=== PATIENT | female | born 1995 | race Caucasian/White ===

== ENCOUNTER 2016-07-25 14:39 | Outpatient (CLI) | payer OTHER ==
[2016-07-25 16:03] LABS: APPEARANCE,URINE CLOUDY; BILIRUBIN,URINE NEGATIVE (NEGATIVE); GLUCOSE, URINE 50 mg/dL (NEGATIVE); KETONES,URINE NEGATIVE (NEGATIVE); LEUKOCYTE ESTERASE,URINE LARGE (NEGATIVE); NITRITE,URINE NEGATIVE (NEGATIVE); PROTEIN,URINE 30 mg/dL (NEGATIVE); URINE SPECIFIC GRAVITY 1.018; UROBILINOGEN,URINE NEGATIVE mg/dL (<2.0)
[2016-07-25 16:16] LABS: ABSOLUTE EOSINOPHILS # (AUTO) 0.1 10^3/uL (0.0-0.6); ABSOLUTE LYMPHOCYTES (AUTO) 1.6 10^3/uL (0.5-4.7); ABSOLUTE MONOCYTES (AUTO) 0.8 10^3/uL (0.1-1.4); ABSOLUTE NEUT (AUTO) 6.9 10^3/uL (1.7-8.2); BASOPHILS % (AUTO) 0.2 % (0-2); EOSINOPHILS % (AUTO) 0.7 % (0-6); HEMOGLOBIN 10.8 g/dL (12.0-15.5); HGB HCT DIFFERENCE 0.4; LYMPHOCYTES % (AUTO) 16.6 % (13-45); MEAN CORPUSCULAR HGB CONC 33.6 g/dL (32.0-36.0); MEAN CORPUSCULAR VOLUME 83 fl (80-97); MONOCYTES % (AUTO) 8.2 % (3-13); RED BLOOD COUNT 3.85 10^6/uL (3.72-5.28); RED CELL DISTRIBUTION WIDTH 13.7 % (11.5-14.0); SEGMENTED NEUTROPHILS % (AUTO) 74.3 % (42-78); WHITE BLOOD COUNT 9.4 10^3/uL (4.0-10.5)
[2016-07-25 16:27] LABS: URINE BARBITURATES SCREEN NEGATIVE; URINE METHADONE SCREEN NEGATIVE; URINE OPIATES LOW NEGATIVE; URINE PHENCYCLIDINE SCREEN NEGATIVE
[2016-07-25 16:31] LABS: URINE PROTEIN 12.4 mg/dL (<12)
[2016-07-25 16:34] LABS: ALANINE AMINOTRANSFERASE 33 U/L (9-52); ALBUMIN 3.2 g/dL (3.5-5.0); ALKALINE PHOSPHATASE 58 U/L (38-126); ANION GAP 10 (5-19); ASPARTATE AMINO TRANSFERASE 18 U/L (14-36); BILIRUBIN,DIRECT 0.2 mg/dL (0.0-0.4); BILIRUBIN,TOTAL 0.2 mg/dL (0.2-1.3); BLOOD UREA NITROGEN 10 mg/dL (7-20); CALCIUM 9.3 mg/dL (8.4-10.2); CARBON DIOXIDE 23 mmol/L (22-30); CHLORIDE 106 mmol/L (98-107); CREATININE RESULT 0.59 mg/dL (0.52-1.25); GLUCOSE 104 mg/dL (75-110); LDH 394 U/L (313-618); POTASSIUM 3.5 mmol/L (3.6-5.0); SODIUM 139.3 mmol/L (137-145); TOTAL PROTEIN 5.8 g/dL (6.3-8.2); URIC ACID 3.5 mg/dL (2.5-6.2)
== END 2016-07-25 17:05 | disposition home or self-care (01) ==
LOC: LC 14:39
PROVIDERS: ATTEND Obstetrics & Gynecology
PROC: 4A1HXCZ Monitoring of Products of Conception, Cardiac Rate, External Approach (ICD-10-PCS; principal; 2016-07-25)
DX: Z36 Encounter for antenatal screening of mother (principal); Z3A.25 25 weeks gestation of pregnancy
CPT/HCPCS: 36415; 80053; 80307; 81001; 82570; 83615; 84156; 84550; 85025

== ENCOUNTER 2016-09-15 13:59 | Outpatient (CLI) | payer OTHER ==
[2016-09-15 14:44] LABS: ABSOLUTE EOSINOPHILS # (AUTO) 0.1 10^3/uL (0.0-0.6); ABSOLUTE LYMPHOCYTES (AUTO) 1.5 10^3/uL (0.5-4.7); ABSOLUTE MONOCYTES (AUTO) 0.8 10^3/uL (0.1-1.4); ABSOLUTE NEUT (AUTO) 8.1 10^3/uL (1.7-8.2); BASOPHILS % (AUTO) 0.3 % (0-2); EOSINOPHILS % (AUTO) 0.6 % (0-6); HEMATOCRIT 34.4 % (36.0-47.0); HEMOGLOBIN 11.6 g/dL (12.0-15.5); HGB HCT DIFFERENCE 0.4; MEAN CORPUSCULAR HEMOGLOBIN 28.7 pg (27.0-33.4); MEAN CORPUSCULAR HGB CONC 33.9 g/dL (32.0-36.0); MEAN CORPUSCULAR VOLUME 85 fl (80-97); MONOCYTES % (AUTO) 7.6 % (3-13); RED BLOOD COUNT 4.06 10^6/uL (3.72-5.28); RED CELL DISTRIBUTION WIDTH 14.9 % (11.5-14.0); SEGMENTED NEUTROPHILS % (AUTO) 77.5 % (42-78); WHITE BLOOD COUNT 10.5 10^3/uL (4.0-10.5)
[2016-09-15 14:58] LABS: ALANINE AMINOTRANSFERASE 31 U/L (9-52); ALBUMIN 3.3 g/dL (3.5-5.0); ALKALINE PHOSPHATASE 96 U/L (38-126); ANION GAP 10 (5-19); ASPARTATE AMINO TRANSFERASE 17 U/L (14-36); BILIRUBIN,DIRECT 0.3 mg/dL (0.0-0.4); BILIRUBIN,TOTAL 0.5 mg/dL (0.2-1.3); BLOOD UREA NITROGEN 9 mg/dL (7-20); CARBON DIOXIDE 18 mmol/L (22-30); CHLORIDE 108 mmol/L (98-107); CREATININE RESULT 0.64 mg/dL (0.52-1.25); GLUCOSE 70 mg/dL (75-110); LDH 444 U/L (313-618); SODIUM 135.6 mmol/L (137-145); TOTAL PROTEIN 6.3 g/dL (6.3-8.2); URIC ACID 4.5 mg/dL (2.5-6.2)
[2016-09-15 15:42] LABS: APPEARANCE,URINE SLIGHTLY-CLOUDY; BILIRUBIN,URINE NEGATIVE (NEGATIVE); GLUCOSE, URINE NEGATIVE (NEGATIVE); KETONES,URINE 20 mg/dL (NEGATIVE); LEUKOCYTE ESTERASE,URINE MODERATE (NEGATIVE); NITRITE,URINE NEGATIVE (NEGATIVE); PROTEIN,URINE 30 mg/dL (NEGATIVE); URINE SPECIFIC GRAVITY 1.012; UROBILINOGEN,URINE NEGATIVE mg/dL (<2.0)
[2016-09-15 16:00] LABS: URINE BARBITURATES SCREEN NEGATIVE; URINE METHADONE SCREEN NEGATIVE; URINE OPIATES LOW NEGATIVE; URINE PHENCYCLIDINE SCREEN NEGATIVE
[2016-09-15 16:06] LABS: URINE CREATININE 123.3 mg/dL (16-327); URINE PROTEIN 24.2 mg/dL (<12)
== END 2016-09-15 16:17 | disposition home or self-care (01) ==
LOC: LC 13:59
PROVIDERS: ATTEND Obstetrics & Gynecology
PROC: 4A1HXCZ Monitoring of Products of Conception, Cardiac Rate, External Approach (ICD-10-PCS; principal; 2016-09-15)
DX: O10.913 Unspecified pre-existing hypertension complicating pregnancy, third trimester (principal); Z3A.32 32 weeks gestation of pregnancy
CPT/HCPCS: 36415; 80053; 80307; 81001; 82570; 83615; 84156; 84550; 85025

== ENCOUNTER 2016-09-18 14:23 | Outpatient (CLI) | payer OTHER ==
[2016-09-18 15:21] LABS: APPEARANCE,URINE SLIGHTLY-CLOUDY; BILIRUBIN,URINE NEGATIVE (NEGATIVE); GLUCOSE, URINE NEGATIVE (NEGATIVE); KETONES,URINE NEGATIVE (NEGATIVE); LEUKOCYTE ESTERASE,URINE TRACE (NEGATIVE); NITRITE,URINE NEGATIVE (NEGATIVE); PROTEIN,URINE 30 mg/dL (NEGATIVE); URINE SPECIFIC GRAVITY 1.014; UROBILINOGEN,URINE NEGATIVE mg/dL (<2.0)
[2016-09-18 15:33] LABS: URINE CREATININE 96.6 mg/dL (16-327); URINE PROTEIN 27.9 mg/dL (<12)
[2016-09-18 15:41] LABS: URINE BARBITURATES SCREEN NEGATIVE; URINE METHADONE SCREEN NEGATIVE; URINE OPIATES LOW NEGATIVE; URINE PHENCYCLIDINE SCREEN NEGATIVE
[2016-09-18 15:52] LABS: ABSOLUTE EOSINOPHILS # (AUTO) 0.1 10^3/uL (0.0-0.6); ABSOLUTE LYMPHOCYTES (AUTO) 1.4 10^3/uL (0.5-4.7); ABSOLUTE MONOCYTES (AUTO) 0.6 10^3/uL (0.1-1.4); ABSOLUTE NEUT (AUTO) 7.8 10^3/uL (1.7-8.2); BASOPHILS % (AUTO) 0.5 % (0-2); EOSINOPHILS % (AUTO) 0.8 % (0-6); HEMOGLOBIN 11.7 g/dL (12.0-15.5); HGB HCT DIFFERENCE 0.1; LYMPHOCYTES % (AUTO) 14.4 % (13-45); MEAN CORPUSCULAR HEMOGLOBIN 28.7 pg (27.0-33.4); MEAN CORPUSCULAR HGB CONC 33.4 g/dL (32.0-36.0); MEAN CORPUSCULAR VOLUME 86 fl (80-97); MONOCYTES % (AUTO) 6.2 % (3-13); RED BLOOD COUNT 4.06 10^6/uL (3.72-5.28); RED CELL DISTRIBUTION WIDTH 15.2 % (11.5-14.0); SEGMENTED NEUTROPHILS % (AUTO) 78.1 % (42-78)
[2016-09-18 16:03] LABS: ALANINE AMINOTRANSFERASE 26 U/L (9-52); ALBUMIN 3.3 g/dL (3.5-5.0); ALKALINE PHOSPHATASE 95 U/L (38-126); ANION GAP 10 (5-19); ASPARTATE AMINO TRANSFERASE 17 U/L (14-36); BILIRUBIN,DIRECT 0.3 mg/dL (0.0-0.4); BILIRUBIN,TOTAL 0.4 mg/dL (0.2-1.3); BLOOD UREA NITROGEN 10 mg/dL (7-20); CALCIUM 9.5 mg/dL (8.4-10.2); CARBON DIOXIDE 19 mmol/L (22-30); CHLORIDE 107 mmol/L (98-107); CREATININE RESULT 0.61 mg/dL (0.52-1.25); GLUCOSE 86 mg/dL (75-110); POTASSIUM 4.1 mmol/L (3.6-5.0); SODIUM 136.2 mmol/L (137-145); TOTAL PROTEIN 6.3 g/dL (6.3-8.2); URIC ACID 4.5 mg/dL (2.5-6.2)
[2016-09-18 16:37] LABS: LDH 480 U/L (313-618)
== END 2016-09-18 17:00 | disposition home or self-care (01) ==
LOC: LC 14:23
PROVIDERS: ATTEND Obstetrics & Gynecology
PROC: 4A1HXCZ Monitoring of Products of Conception, Cardiac Rate, External Approach (ICD-10-PCS; principal; 2016-09-18)
DX: O16.3 Unspecified maternal hypertension, third trimester (principal); Z3A.32 32 weeks gestation of pregnancy
CPT/HCPCS: 36415; 59025; 80053; 80307; 81001; 82570; 83615; 84156; 84550; 85025

== ENCOUNTER 2016-09-22 13:57 | Outpatient (CLI) | payer OTHER ==
[2016-09-22 15:00] LABS: ABSOLUTE EOSINOPHILS # (AUTO) 0.1 10^3/uL (0.0-0.6); ABSOLUTE LYMPHOCYTES (AUTO) 1.5 10^3/uL (0.5-4.7); ABSOLUTE NEUT (AUTO) 7.9 10^3/uL (1.7-8.2); BASOPHILS % (AUTO) 0.4 % (0-2); EOSINOPHILS % (AUTO) 0.8 % (0-6); HEMATOCRIT 33.9 % (36.0-47.0); HEMOGLOBIN 11.5 g/dL (12.0-15.5); HGB HCT DIFFERENCE 0.6; LYMPHOCYTES % (AUTO) 14.5 % (13-45); MEAN CORPUSCULAR HEMOGLOBIN 28.8 pg (27.0-33.4); MEAN CORPUSCULAR VOLUME 85 fl (80-97); MONOCYTES % (AUTO) 9.2 % (3-13); SEGMENTED NEUTROPHILS % (AUTO) 75.1 % (42-78); WHITE BLOOD COUNT 10.5 10^3/uL (4.0-10.5)
[2016-09-22 15:30] LABS: ALANINE AMINOTRANSFERASE 18 U/L (9-52); ALBUMIN 3.4 g/dL (3.5-5.0); ALKALINE PHOSPHATASE 95 U/L (38-126); ANION GAP 9 (5-19); ASPARTATE AMINO TRANSFERASE 14 U/L (14-36); BILIRUBIN,DIRECT 0.3 mg/dL (0.0-0.4); BILIRUBIN,TOTAL 0.4 mg/dL (0.2-1.3); BLOOD UREA NITROGEN 9 mg/dL (7-20); CALCIUM 9.8 mg/dL (8.4-10.2); CARBON DIOXIDE 19 mmol/L (22-30); CHLORIDE 107 mmol/L (98-107); CREATININE RESULT 0.57 mg/dL (0.52-1.25); GLUCOSE 69 mg/dL (75-110); LDH 421 U/L (313-618); POTASSIUM 4.2 mmol/L (3.6-5.0); SODIUM 134.9 mmol/L (137-145); TOTAL PROTEIN 6.3 g/dL (6.3-8.2); URIC ACID 4.4 mg/dL (2.5-6.2)
== END 2016-09-22 16:00 | disposition home or self-care (01) ==
LOC: LC 13:57
PROVIDERS: ATTEND Obstetrics & Gynecology
PROC: 4A1HXCZ Monitoring of Products of Conception, Cardiac Rate, External Approach (ICD-10-PCS; principal; 2016-09-22)
DX: O14.93 Unspecified pre-eclampsia, third trimester (principal); Z3A.33 33 weeks gestation of pregnancy
CPT/HCPCS: 36415; 59025; 80053; 83615; 84550; 85025

== ENCOUNTER 2016-10-09 15:28 | Outpatient (CLI) | payer OTHER ==
--- NOTE | 2016-10-09 15:35 | Non Stress Test Report ---
Non Stress Test Datetime Report Generated by CPN: 10/09/2016 15:35 DEMOGRAPHIC EGA NST: 33.3 EGA NST: 32.6 INDICATION Indication for Study: Ordered by Provider; Other Indication for Study: Ordered by Provider Indication for Study (NST) Other: preeclampsia MONITORING Monitor Explained: Monitor Explained; Test Explained; Patient Verbalized Understanding Monitor Explained: Monitor Explained; Test Explained; Patient Verbalized Understanding Time on Monitor: 09/22/2016 14:11 Time on Monitor: 09/18/2016 14:41 Time off Monitor: 09/22/2016 14:40 Time off Monitor: 09/25/2016 16:32 NST Duration: 29 NST Duration: [id number] NST INTERVENTIONS NST Interventions: None NST Interventions: None Physician Notified NST: JAmparo Nj CNM BABY A: [id number] BABY A Movement : Present Movement : Present Contraction Frequency : 0 Contraction Frequency : none FHR Baseline : 135 FHR Baseline : 140 Accelerations : 15X15 Accelerations : 15X15 Decelerations : None Decelerations : None Variability : Moderate 6-25bpm Variability : Moderate 6-25bpm NST Review: Meets Criteria for Reactive NST NST Review: Meets Criteria for Reactive NST NST Review and Verified By : Renetta Couch RN NST Review and Verified By : Modesta Guadarrama RNC NST Results: Reactive NST Results: Reactive NST REPORT Report Trigger: Send Report Report Trigger: Send Report
[2016-10-09 16:06] LABS: APPEARANCE,URINE SLIGHTLY-CLOUDY; BILIRUBIN,URINE NEGATIVE (NEGATIVE); GLUCOSE, URINE NEGATIVE (NEGATIVE); KETONES,URINE NEGATIVE (NEGATIVE); LEUKOCYTE ESTERASE,URINE SMALL (NEGATIVE); NITRITE,URINE NEGATIVE (NEGATIVE); PROTEIN,URINE 100 mg/dL (NEGATIVE); URINE SPECIFIC GRAVITY 1.017; UROBILINOGEN,URINE NEGATIVE mg/dL (<2.0)
--- NOTE | 2016-10-09 16:21 | Non Stress Test Report ---
Non Stress Test Datetime Report Generated by CPN: 10/09/2016 16:21 DEMOGRAPHIC EGA NST: 35.6 INDICATION Indication for Study: Gestational Hypertension; Ordered by Provider MONITORING Monitor Explained: Monitor Explained; Test Explained; Patient Verbalized Understanding Time on Monitor: 10/09/2016 15:46 Time off Monitor: 10/09/2016 16:14 NST Duration: 28 NST INTERVENTIONS NST Interventions: PO Hydration; Reposition Patient BABY A Movement : Present Contraction Frequency : denies FHR Baseline : 135 Accelerations : 15X15 Decelerations : None Variability : Moderate 6-25bpm NST Review: Meets Criteria for Reactive NST NST Review and Verified By : Omayra Sharif RN NST Results: Reactive NST REPORT Report Trigger: Send Report
[2016-10-09 16:24] LABS: URINE BARBITURATES SCREEN NEGATIVE; URINE METHADONE SCREEN NEGATIVE; URINE OPIATES LOW NEGATIVE; URINE PHENCYCLIDINE SCREEN NEGATIVE
[2016-10-09 16:32] LABS: ABSOLUTE EOSINOPHILS # (AUTO) 0.1 10^3/uL (0.0-0.6); ABSOLUTE LYMPHOCYTES (AUTO) 1.5 10^3/uL (0.5-4.7); ABSOLUTE MONOCYTES (AUTO) 0.9 10^3/uL (0.1-1.4); BASOPHILS % (AUTO) 0.4 % (0-2); EOSINOPHILS % (AUTO) 0.7 % (0-6); HEMATOCRIT 34.2 % (36.0-47.0); HEMOGLOBIN 11.6 g/dL (12.0-15.5); HGB HCT DIFFERENCE 0.6; LYMPHOCYTES % (AUTO) 16.2 % (13-45); MEAN CORPUSCULAR HEMOGLOBIN 29.5 pg (27.0-33.4); MEAN CORPUSCULAR HGB CONC 33.9 g/dL (32.0-36.0); MEAN CORPUSCULAR VOLUME 87 fl (80-97); MONOCYTES % (AUTO) 9.3 % (3-13); RED BLOOD COUNT 3.93 10^6/uL (3.72-5.28); RED CELL DISTRIBUTION WIDTH 15.6 % (11.5-14.0); SEGMENTED NEUTROPHILS % (AUTO) 73.4 % (42-78); WHITE BLOOD COUNT 9.5 10^3/uL (4.0-10.5)
[2016-10-09 16:54] LABS: ALANINE AMINOTRANSFERASE 14 U/L (9-52); ALBUMIN 3.3 g/dL (3.5-5.0); ALKALINE PHOSPHATASE 105 U/L (38-126); ANION GAP 10 (5-19); ASPARTATE AMINO TRANSFERASE 18 U/L (14-36); BILIRUBIN,DIRECT 0.3 mg/dL (0.0-0.4); BILIRUBIN,TOTAL 0.3 mg/dL (0.2-1.3); BLOOD UREA NITROGEN 12 mg/dL (7-20); CALCIUM 9.2 mg/dL (8.4-10.2); CARBON DIOXIDE 20 mmol/L (22-30); CHLORIDE 107 mmol/L (98-107); CREATININE RESULT 0.65 mg/dL (0.52-1.25); GLUCOSE 82 mg/dL (75-110); LDH 442 U/L (313-618); POTASSIUM 4.4 mmol/L (3.6-5.0); SODIUM 137.3 mmol/L (137-145); TOTAL PROTEIN 6.1 g/dL (6.3-8.2); URIC ACID 5.3 mg/dL (2.5-6.2)
[2016-10-09 17:48] LABS: URINE CREATININE 135.5 mg/dL (16-327)
== END 2016-10-09 17:30 | disposition home or self-care (01) ==
LOC: LC 15:28
PROVIDERS: ATTEND Obstetrics & Gynecology
PROC: 4A1HXCZ Monitoring of Products of Conception, Cardiac Rate, External Approach (ICD-10-PCS; principal; 2016-10-09)
DX: O13.3 Gestational [pregnancy-induced] hypertension without significant proteinuria, third trimester (principal); Z3A.35 35 weeks gestation of pregnancy
CPT/HCPCS: 36415; 59025; 80053; 80307; 81001; 82570; 83615; 84156; 84550; 85025

== ENCOUNTER 2016-10-17 08:31 | Inpatient (IN) | payer OTHER ==
[2016-10-17] MEDS ORDERED: RINGERS SOLUTION,LACTATED 1,000 ML IV PRN (08:47)
[2016-10-17] MEDS ORDERED: DEXTROSE 5%-LACTATED RINGERS 1,000 ML IV PRN (08:52)
[2016-10-17 09:14] LABS: APPEARANCE,URINE TURBID; BILIRUBIN,URINE NEGATIVE (NEGATIVE); GLUCOSE, URINE NEGATIVE (NEGATIVE); KETONES,URINE NEGATIVE (NEGATIVE); LEUKOCYTE ESTERASE,URINE MODERATE (NEGATIVE); NITRITE,URINE NEGATIVE (NEGATIVE); PROTEIN,URINE 100 mg/dL (NEGATIVE); URINE SPECIFIC GRAVITY 1.026; UROBILINOGEN,URINE NEGATIVE mg/dL (<2.0)
[2016-10-17 09:32] LABS: URINE BARBITURATES SCREEN NEGATIVE; URINE METHADONE SCREEN NEGATIVE; URINE OPIATES LOW NEGATIVE; URINE PHENCYCLIDINE SCREEN NEGATIVE
[2016-10-17] MEDS ORDERED: DINOPROSTONE 10 MG VAGINAL INSERT.SR PV PRN (10:19)
[2016-10-17] MEDS ORDERED: DINOPROSTONE 10 MG VAGINAL INSERT.SR ONE (10:24)
[2016-10-17 10:44] LABS: ABSOLUTE EOSINOPHILS # (AUTO) 0.1 10^3/uL (0.0-0.6); ABSOLUTE LYMPHOCYTES (AUTO) 1.3 10^3/uL (0.5-4.7); ABSOLUTE MONOCYTES (AUTO) 0.8 10^3/uL (0.1-1.4); ABSOLUTE NEUT (AUTO) 6.2 10^3/uL (1.7-8.2); BASOPHILS % (AUTO) 0.5 % (0-2); EOSINOPHILS % (AUTO) 0.8 % (0-6); HEMATOCRIT 34.7 % (36.0-47.0); HGB HCT DIFFERENCE 1.3; LYMPHOCYTES % (AUTO) 15.7 % (13-45); MEAN CORPUSCULAR HEMOGLOBIN 30.2 pg (27.0-33.4); MEAN CORPUSCULAR HGB CONC 34.5 g/dL (32.0-36.0); MEAN CORPUSCULAR VOLUME 87 fl (80-97); MONOCYTES % (AUTO) 9.5 % (3-13); RED BLOOD COUNT 3.97 10^6/uL (3.72-5.28); RED CELL DISTRIBUTION WIDTH 15.6 % (11.5-14.0); SEGMENTED NEUTROPHILS % (AUTO) 73.5 % (42-78); WHITE BLOOD COUNT 8.4 10^3/uL (4.0-10.5)
[2016-10-17] MEDS ORDERED: LABETALOL HCL 200 MG TABLET ONE (16:04)
[2016-10-18] MEDS ORDERED: MISOPROSTOL 0.2 MG TABLET PO ONE ×2 (00:04→04:02)
[2016-10-18] MEDS ORDERED: LABETALOL HCL 200 MG TABLET ONE ×3 (00:11→15:59)
[2016-10-18] MEDS ORDERED: MISOPROSTOL 0.1 MG TABLET ONE ×2 (00:12→04:25)
[2016-10-18] MEDS: LABETALOL HCL 200 MG TABLET PO SCH ×3 (01:55→16:02)
[2016-10-18] MEDS ORDERED: OXYTOCIN/NORMAL SALINE 20 UNIT/1,000 ML RTUINJ ONE (08:35)
[2016-10-18] MEDS: OXYTOCIN/NORMAL SALINE 1,000 ML IV PRN (16:00)
[2016-10-18] MEDS ORDERED: DINOPROSTONE 10 MG VAGINAL INSERT.SR PV PRN (19:00)
[2016-10-18] MEDS ORDERED: DINOPROSTONE 10 MG VAGINAL INSERT.SR ONE (20:24)
[2016-10-18] MEDS ORDERED: ZOLPIDEM TARTRATE 5 MG TABLET PO ONE (22:00)
[2016-10-18] MEDS ORDERED: ZOLPIDEM TARTRATE 5 MG TABLET ONE (22:02)
[2016-10-19] MEDS: LABETALOL HCL 200 MG TABLET PO SCH ×4 (00:08→23:48)
[2016-10-19] MEDS ORDERED: LABETALOL HCL 200 MG TABLET ONE ×4 (00:08→15:46)
[2016-10-19] MEDS ORDERED: MISOPROSTOL 0.1 MG TABLET ONE (08:02)
[2016-10-19] MEDS ORDERED: LABETALOL HCL 200 MG TABLET PO ONE (09:30)
[2016-10-19 09:49] LABS: ABSOLUTE EOSINOPHILS # (AUTO) 0.1 10^3/uL (0.0-0.6); ABSOLUTE LYMPHOCYTES (AUTO) 1.1 10^3/uL (0.5-4.7); ABSOLUTE MONOCYTES (AUTO) 0.7 10^3/uL (0.1-1.4); BASOPHILS % (AUTO) 0.3 % (0-2); EOSINOPHILS % (AUTO) 0.6 % (0-6); HEMATOCRIT 36.3 % (36.0-47.0); HEMOGLOBIN 12.5 g/dL (12.0-15.5); HGB HCT DIFFERENCE 1.2; LYMPHOCYTES % (AUTO) 10.3 % (13-45); MEAN CORPUSCULAR HEMOGLOBIN 29.9 pg (27.0-33.4); MEAN CORPUSCULAR HGB CONC 34.4 g/dL (32.0-36.0); MEAN CORPUSCULAR VOLUME 87 fl (80-97); MONOCYTES % (AUTO) 6.4 % (3-13); RED BLOOD COUNT 4.18 10^6/uL (3.72-5.28); RED CELL DISTRIBUTION WIDTH 15.7 % (11.5-14.0); SEGMENTED NEUTROPHILS % (AUTO) 82.4 % (42-78)
[2016-10-19] MEDS ORDERED: ONDANSETRON HCL INJ/PF 4 MG/2 ML SDV ONE ×2 (10:12→20:34)
[2016-10-19] MEDS ORDERED: KETOROLAC TROMETHAMINE 60 MG/2 ML SDV ONE (10:12)
[2016-10-19] MEDS ORDERED: METOCLOPRAMIDE HCL INJ/PF 10 MG/2 ML SDV ONE (10:12)
[2016-10-19] MEDS ORDERED: DEXAMETHASONE SOD PHOSPHATE INJ 4 MG/1 ML VIAL ONE (10:12)
[2016-10-19] MEDS ORDERED: OXYTOCIN/NORMAL SALINE 20 UNIT/1,000 ML RTUINJ ONE ×3 (12:29→20:21)
[2016-10-19] MEDS: OXYTOCIN/NORMAL SALINE 1,000 ML IV PRN (13:08)
[2016-10-19] MEDS ORDERED: LABETALOL HCL 200 MG TABLET PO SCH (14:00)
[2016-10-19] MEDS ORDERED: CITRIC ACID/SODIUM CITRATE ORAL SOLN 15 ML UDCUP PO PRN (15:43)
[2016-10-19] MEDS ORDERED: CEFAZOLIN 2 GM/D5W RTU 50 ML IV PRN (15:43)
[2016-10-19] MEDS ORDERED: CEFAZOLIN 2 GM/D5W RTU 2 GM/50 ML RTUPB IV ONE (15:47)
[2016-10-19] MEDS ORDERED: CITRIC ACID/SODIUM CITRATE ORAL SOLN 15 ML UDCUP ONE (15:47)
[2016-10-19] MEDS ORDERED: OXYTOCIN 10 UNIT/ML VIAL ONE (16:24)
[2016-10-19] MEDS ORDERED: KETAMINE HCL INJ 500 MG/10 ML VIAL ONE (16:24)
[2016-10-19] MEDS ORDERED: FENTANYL CITRATE INJ/PF 100 MCG/2 ML AMPUL ONE (16:25)
[2016-10-19] MEDS ORDERED: MIDAZOLAM 2 MG/2 ML INJ ONE (16:25)
[2016-10-19] MEDS ORDERED: EPHEDRINE SULFATE INJ 50 MG/1 ML AMPULE ONE (16:25)
[2016-10-19] MEDS ORDERED: MEPERIDINE HCL/PF INJ 25 MG/1 ML DISP.SYRIN IV PRN (16:59)
[2016-10-19] MEDS ORDERED: FENTANYL CITRATE INJ/PF 100 MCG/2 ML AMPUL IV PRN ×3 (16:59)
[2016-10-19] MEDS ORDERED: DIPHENHYDRAMINE HCL 50 MG/ML VIAL IV PRN (16:59)
[2016-10-19] MEDS ORDERED: ONDANSETRON HCL INJ/PF 4 MG/2 ML SDV IV PRN (16:59)
[2016-10-19] MEDS ORDERED: PROMETHAZINE HCL INJ 25 MG/1 ML VIAL IV PRN ×3 (16:59→19:14)
[2016-10-19] MEDS ORDERED: MORPHINE SULFATE 10 MG/ML INJ IV PRN (16:59)
[2016-10-19] MEDS ORDERED: ACETAMINOPHEN 100 ML IV ONE (17:21)
[2016-10-19] MEDS ORDERED: DIPH/PERTUSS(ACELL)/TETANUS VAC/PF 0.5 ML SYR (>=10YO) IM PRN (19:14)
[2016-10-19] MEDS ORDERED: OXYCODONE-ACETAMINOPHEN 5-325 MG TABLET PO PRN ×2 (19:14)
[2016-10-19] MEDS ORDERED: OXYTOCIN/NORMAL SALINE 1,000 ML IV PRN (19:14)
[2016-10-19] MEDS ORDERED: MEASLES,MUMPS&RUBELLA VACC/PF 0.5 ML VIAL SUBCUT PRN (19:14)
[2016-10-19] MEDS ORDERED: ACETAMINOPHEN 325 MG TABLET PO PRN (19:14)
[2016-10-19] MEDS ORDERED: SIMETHICONE 80 MG TAB.CHEW PO PRN (19:14)
--- NOTE | 2016-10-19 20:00 | Admission Physical ---
Datetime Report Generated by CPN: 10/19/2016 19:59 CURRENT ADMISSION Chief Complaint: Scheduled Induction of Labor Indication for Induction: Gestational HTN Admit Plan: Initiate Labor Induction Protocol ALLERGIES Medication Allergies: Yes Medication Allergies: sumatriptan/MO/Difficulty jac (10/09/2016); tramadol/SV/Difficulty jac (10/09/2016) Medication Allergies: tramadol (09/22/2016) Medication Allergies: tramadol (09/15/2016) Medication Allergies: tramadol (12/03/2014) Latex: No Latex Allergies OBSTETRICAL HISTORY EDC: 11/07/2016 00:00 : 1 Para: 0 Term: 0 : 0 SAB: 0 IAB: 0 Ectopic: 0 Livin Cesareans: 0 VBACs: 0 Multiple Births: 0 Gestational Diabetes: No Rh Sensitization: No Incompetent Cervix: No ANDREW: No Infertility: No ART Treatment: No Uterine Anomaly: No IUGR: No Hx Previous C/S: No Macrosomia: No Hx Loss/Stillborn: No PIH: Yes Hx : No Placenta Previa/Abruption: No Depression/PP Depression: No PTL/PROM: No Post Hemorrhage: No Current Procedures: Ultrasound; NST Obstetrical History Comments: G1- current SEE RECORDS Alcohol: No Marijuana : No Cocaine: No Other Illicit Drugs: No Cigarettes: Never Smoker. 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 INFECTIOUS HISTORY Gonorrhea: No Genital Herpes: No Chlamydia: No Tuberculosis: No Syphilis: No Hepatitis: No HIV/AIDS Exposure: No Rash or Viral Illness: No HPV: No PHYSICAL EXAM General: Normal HEENT: Deferred Neurologic: Normal Thyroid: Deferred Heart: Normal Lungs: Normal Breast: Deferred Back: Deferred Abdomen: Normal Genitourinary Exam: Normal Extremities: Normal DTRs: Deferred Pelvic Type: Adequate VAGINAL EXAM Dilatation: 0 Effacement: 0 Station: -2 MEMBRANES Membranes: Intact FETUS A EGA: 37.0 Monitoring: External US FHR- Baseline: 135 Variability: Moderate 6-25bpm Accelerations: 15X15 Decelerations: None Presentation: Vertex PLANS FOR LABOR AND DELIVERY Labor and Delivery: None Pain Management: Natural Feeding Preference: Breast Benefit of Breast Feed Discussed: Yes Circumcision: Yes INFORMED CONSENT Assignment: DO Giuseppe Marr: with User ID: [email or web address] : with User ID: [email or web address]
--- NOTE | 2016-10-19 20:06 | Delivery Summary ---
Del Sum A-C Datetime Report Generated by CPN: 10/19/2016 20:06 DELIVERY PERSONNEL DELIVERY PERSONNEL: [id number];[id number];[id number] Delivery Doctor:: Toñito Cavanaugh DO Anesthesiologist:: Tj Muñoz MD LPTA:: Tamika Thomas CRNA Labor and Delivery Nurse:: Brooke Bobo RNhyperion developer Nurse:: Dorene Ledbetter RN Neonatal Nurse Practitioner:: SAHIL Chavira Nursery Nurse:: Lalita Russell RN Nursery Nurse:: Karolina Weeks RN Revenue Agent/ELECTRICAL SERVICE TECHNICIAN: Karan Stahl CST Revenue Agent/ELECTRICAL SERVICE TECHNICIAN: Stefania Martins CST MATERNAL INFORMATION Delivery Anesthesia: Spinal Medications After Delivery: Pitocin Drip 20 Units/1000ml NSS Estimated Blood Loss (ml): 600 Maternal Complications: Other Other Maternal Complications: Chronic HTN, superimposed Pre-E LABOR SUMMARY EDC: 11/07/2016 00:00 No. Babies in Womb: 1 LABOR INFORMATION Cervical Ripening Agents: Cytotec @ 50 mcg Oxytocin: Induction Group B Beta Strep: negative MEMBRANES Membranes Rupture Method: Artificial Rupture of Membranes: 10/19/2016 16:48 Length of Rupture (hr): 0.00 Amniotic Fluid Color: Clear Amniotic Fluid Amount: Moderate STAGES OF LABOR Stage 3 hr: 0 Stage 3 min: 0 CSECTION DELIVERY Primary Indication: Failed Induction Secondary Indication: Nonreassuring Status CSection Urgency: Non-Scheduled CSection Incidence: Primary Labor: No Labor Elective: N/A CSection Incision: Lower Uterine Transverse Uterine Closure: Double-layer closure BABY A INFORMATION Infant Delivery Date/Time: 10/19/2016 16:48 Method of Delivery: Born in Route : No : N/A Forceps: N/A Vacuum Extraction: N/A Shoulder Dystocia : No PRESENTATION/POSITION BABY A Presentation: Cephalic Cephalic Presentation: Vertex Breech Presentation: N/A PLACENTA INFORMATION BABY A Placenta Delivery Time : 10/19/2016 16:48 Placenta Method of Delivery: Manual Removal Placenta Status: Delivered (Annotations: Data stored by [facility] on behalf of user) SCORES BABY A Heart Rate 1 min: >100 bpm Resp Effort 1 min: Good Cry Reflex Irritability 1 min: Cough or Sneeze or Pulls Away Muscle Tone 1 min: Active Motion Color 1 min: Blue/Pale SCORE 1 MIN: 8 Heart Rate 5 min: >100 bpm Resp Effort 5 min: Good Cry Reflex Irritability 5 min: Cough or Sneeze or Pulls Away Muscle Tone 5 min: Active Motion Color 5 min: Body [place], Extremities Blue SCORE 5 MIN: 9 INFANT INFORMATION BABY A Gestational Age at Delivery: 37.2 Gestational Status: Early Term- 37- 38.6 Weeks Outcome : Liveborn Infant Condition : Stable Infant Sex: Male IDENTIFICATION BABY A Verification Date/Time: 10/19/2016 16:04 ID Band Number: [id number] Mother's Name Verified: Yes Infant RN Verifying Infant: Gila Bobo RN and Oscar Ledbetter RN WEIGHT/LENGTH BABY A Birthweight (gm): 2160 Infant Weight (lb): 4 Weight (oz): 12 Length (in): 18.00 Length (cm): 45.72 CORD INFORMATION BABY A No. Cord Vessels: 3 Nuchal Cord : Around Neck x1, Loose Cord Blood Taken: Yes-For Storage (Mom's Blood type +) ASSESSMENT BABY A Complications: Other Complications- Other: IUGR Physical Findings- Other: Assessment by Bindu You [facility] Care By: Bindu Bentley RN and Moises Weeks RN Transferred To: Nursery SIGNATURES Signature: with User ID: [email or web address] : I was personally available for consultation and serving as supervising physician for the MLP.
[2016-10-19] MEDS ORDERED: MISOPROSTOL 0.2 MG TABLET ONE ×2 (20:20→20:41)
[2016-10-19] MEDS ORDERED: CARBOPROST TROMETHAMINE INJ 250 MCG/1 ML AMPULE ONE (20:41)
[2016-10-19] MEDS ORDERED: METHYLERGONOVINE MALEATE INJ/PF 0.2 MG/1 ML AMPULE ONE (20:41)
[2016-10-19] MEDS ORDERED: OXYTOCIN/NORMAL SALINE 20 UNIT/1,000 ML RTUINJ IV ONE (20:45)
[2016-10-19] MEDS: HYDROMORPHONE HCL INJ/PF 2 MG/ML AMPULE IV PRN (20:57)
[2016-10-19] MEDS ORDERED: HYDROMORPHONE HCL INJ/PF 2 MG/ML AMPULE ONE (20:58)
[2016-10-19 20:59] LABS: HEMOGLOBIN 10.5 g/dL (12.0-15.5); HGB HCT DIFFERENCE 0.5; MEAN CORPUSCULAR HEMOGLOBIN 29.9 pg (27.0-33.4); MEAN CORPUSCULAR HGB CONC 33.7 g/dL (32.0-36.0); MEAN CORPUSCULAR VOLUME 89 fl (80-97); RED CELL DISTRIBUTION WIDTH 15.6 % (11.5-14.0); WHITE BLOOD COUNT 17.8 10^3/uL (4.0-10.5)
[2016-10-19] MEDS ORDERED: MISOPROSTOL 0.2 MG TABLET PR ONE (21:00)
[2016-10-19] MEDS ORDERED: ONDANSETRON HCL INJ/PF 4 MG/2 ML SDV IV ONE (21:00)
[2016-10-19] MEDS ORDERED: PROMETHAZINE HCL INJ 25 MG/1 ML VIAL IM PRN (21:30)
[2016-10-20] MEDS: HYDROMORPHONE HCL INJ/PF 2 MG/ML AMPULE IV PRN (00:51)
[2016-10-20] MEDS: IBUPROFEN 800 MG TABLET PO SCH ×5 (04:10→23:47)
[2016-10-20] MEDS ORDERED: ONDANSETRON HCL INJ/PF 4 MG/2 ML SDV ONE (05:19)
[2016-10-20] MEDS ORDERED: ONDANSETRON HCL INJ/PF 4 MG/2 ML SDV IV PRN (05:55)
[2016-10-20 06:36] LABS: HEMATOCRIT 24.3 % (36.0-47.0); HGB HCT DIFFERENCE 0.6; MEAN CORPUSCULAR HEMOGLOBIN 29.7 pg (27.0-33.4); MEAN CORPUSCULAR HGB CONC 34.1 g/dL (32.0-36.0); MEAN CORPUSCULAR VOLUME 87 fl (80-97); RED BLOOD COUNT 2.79 10^6/uL (3.72-5.28); RED CELL DISTRIBUTION WIDTH 15.1 % (11.5-14.0)
[2016-10-20 06:44] LABS: HEMOGLOBIN 8.3 g/dL (12.0-15.5)
[2016-10-20] MEDS: LABETALOL HCL 200 MG TABLET PO SCH ×3 (07:49→23:50)
[2016-10-20] MEDS: DOCUSATE SODIUM 100 MG CAPSULE PO SCH ×2 (09:35→17:53)
[2016-10-20] MEDS: PRENATAL VITAMIN W-O CA NO5/FE FUMARATE/FA CAPSULE PO SCH (09:35)
--- NOTE | 2016-10-20 09:45 | PDOC PROGRESS REPORT ---
Subjective-OB Subjective: Post Delivery Day: 20 year old. Denies any needs at this time Doing well, better today, hsb at , states baby is improving, going to nursery today, eating, voiding, ambulating, + flatus, breast/bottle feeding, scant lochia Physical Exam (OB) Vital Signs: Temp Pulse Resp BP Pulse Ox 98.4 F 93 17 141/94 H 98 10/20/16 07:45 10/20/16 07:45 10/20/16 07:45 10/20/16 07:45 10/20/16 07:45 Intake & Output 10/19/16 10/20/16 10/21/16 06:59 06:59 06:59 Intake Total 1300 Output Total 1100 150 Balance 200 -150 - PIH/Pre-Eclampsia DTR's: 2 + Clonus: Negative Headache: Absent Epigastric Pain: No Visual Changes: No - Lochia Lochia Amount: Small 10-25 ml Lochia Color: Rubra/Red - Abdomen Description: Soft, Distended Hernia Present: No Fundal Description: Firm, Midline Fundal Height: u/u - u/2 Objective-Diagnostic Laboratory: 10/20/16 06:18 10/19/16 10/19/16 10/20/16 09:25 20:30 06:18 WBC 11.0 H 17.8 H 14.0 H RBC 4.18 3.50 L 2.79 L Hgb 12.5 10.5 L 8.3 L D Hct 36.3 31.0 L 24.3 L MCV 87 89 87 MCH 29.9 29.9 29.7 MCHC 34.4 33.7 34.1 RDW 15.7 H 15.6 H 15.1 H Plt Count 188 196 143 L Seg Neutrophils % 82.4 H Lymphocytes % 10.3 L Monocytes % 6.4 Eosinophils % 0.6 Basophils % 0.3 Absolute Neutrophils 9.0 H Absolute Lymphocytes 1.1 Absolute Monocytes 0.7 Absolute Eosinophils 0.1 Absolute Basophils 0.0 Assessment and Plan(PN) - Assessment and Plan (1) IUGR (intrauterine growth retardation), delivered, current hospitalization Is this a current diagnosis for this admission?: Yes (2) Delivery by emergency caesarean section Is this a current diagnosis for this admission?: Yes (3) Anemia due to acute blood loss Is this a current diagnosis for this admission?: Yes - Time Spent with Patient Time with patient: Less than 15 minutes Medications reviewed and adjusted accordingly: Yes - Disposition Anticipated Discharge: Home Within: within 48 hours
[2016-10-21] MEDS: IBUPROFEN 800 MG TABLET PO SCH ×2 (07:12→11:33)
[2016-10-21] MEDS: LABETALOL HCL 200 MG TABLET PO SCH ×2 (08:05→15:21)
[2016-10-21] MEDS: DOCUSATE SODIUM 100 MG CAPSULE PO SCH (09:11)
[2016-10-21] MEDS: PRENATAL VITAMIN W-O CA NO5/FE FUMARATE/FA CAPSULE PO SCH (09:12)
--- NOTE | 2016-10-21 11:51 | PDOC DISCHARGE SUMMARY ---
Final Diagnosis Discharge Date: 10/21/16 - Final Diagnosis (1) IUGR (intrauterine growth retardation), delivered, current hospitalization Is this a current diagnosis for this admission?: Yes (2) Delivery by emergency caesarean section Is this a current diagnosis for this admission?: Yes (3) Anemia due to acute blood loss Is this a current diagnosis for this admission?: Yes Discharge Data - Discharge Medication Home Medications: Aspirin [Aspirin 81 mg Chewable Tablet] 81 mg PO DAILY 07/25/16 Pnv #116/Iron Fumarate/FA/Dha [Expecta Combo Pack] 1 tab PO DAILY 07/25 Labetalol HCl 100 mg PO TID 09/15/16 Docusate Sodium [Colace 100 mg Capsule] 100 mg PO BID #60 capsule 10/21/16 Ferrous Sulfate [Iron] 1 tab PO BID #0 10/21/16 Ibuprofen [Motrin 800 mg Tablet] 800 mg PO Q6 #60 tablet 10/21/16 Oxycodone HCl/Acetaminophen [Percocet 5-325 mg Tablet] 1 tab PO Q4HP PRN #30 tablet 10/21/16 Reason(s) for Admission: Induction of Labor Procedures: NST, Ultrasound Intrapartum Procedure(s): : Low Cervical, Transverse - Diagnosis Test Laboratory: Temp Pulse Resp BP Pulse Ox 98.0 F 93 14 119/83 99 10/21/16 07:59 10/21/16 07:59 10/21/16 07:59 10/21/16 07:59 10/21/16 07:59 10/17/16 10/17/16 10/19/16 08:55 10:30 09:25 RBC 3.97 4.18 Hgb 12.0 12.5 Hct 34.7 L 36.3 Urine Opiates Screen NEGATIVE 10/19/16 10/20/16 20:30 06:18 RBC 3.50 L 2.79 L Hgb 10.5 L 8.3 L D Hct 31.0 L 24.3 L Urine Opiates Screen - Discharge information/Instructions Discharge Activity: Activity As Tolerated, Balance Activity w/Rest, No Lifting Over 10 Pounds, No Lifting/Push/Pulling, Pelvic Rest, Slowly Increase Activity, No tub bath Discharge Diet: As Tolerated, Regular Disposition: HOME, SELF-CARE Follow up with: [facility] in: 3, Days - blood pressure check
[2016-10-21 12:00] VITALS: BP 132/82
--- NOTE | 2016-11-24 10:41 | OPERATIVE REPORT E ---
Operative Report NAME: VIKTORIA SMALL : 1995 AGE: 20Y DATE OF SURGERY: 10/19/2016 ROOM: 228 PREOPERATIVE DIAGNOSES: 1. A 37-week intrauterine . 2. Chronic hypertension with superimposed preeclampsia. 3. Failed induction. POSTOPERATIVE DIAGNOSES: 1. A 37-week intrauterine . 2. Chronic hypertension with superimposed preeclampsia. 3. Failed induction. SURGEON: Toñito Cavanaugh DO DAIRY HUSBANDRY WORKER: None. PROCEDURE: Primary low-transverse section. ANESTHESIA: Epidural. COMPLICATIONS: None. PATHOLOGY: Placenta. ESTIMATED BLOOD LOSS: 600 mL. FINDINGS: 1. A viable male infant at 1648 hours on 10/19/2016. 8 at one, 9 at five, weight 4 pounds 5 ounces. 2. Loose nuchal cord x1. 3. Normal appearing bilateral fallopian tubes and ovaries. DESCRIPTION OF PROCEDURE: The patient was taken to the operating room where epidural anesthesia was checked and found to be operating adequately. She was placed in the dorsal supine position with a leftward tilt upon the operating room table. She was then prepped and draped in normal sterile fashion. A scalpel was then used to make a thin Pfannenstiel skin incision. The skin incision was carried down through subcutaneous tissue to the layer of the fascia. The fascia was then incised in the midline. The fascial incision was then extended bilaterally using the Bovie cautery. The superior fascial edge was grasped with Naz clamps, elevated, and the rectus muscles were dissected off sharply and bluntly. Attention was then turned to the inferior fascial edge, which was grasped with Naz clamps, elevated, and the rectus muscle was dissected off sharply and bluntly. Rectus muscles were then in the midline, peritoneum identified and entered bluntly with the surgeon's hands. Bladder blade was inserted. A scalpel was then used to make a low transverse hysterotomy incision. The was delivered through the incision in the cephalic position without difficulty and atraumatically. The nose and mouth were suctioned. The cord was clamped and cut, and the infant was handed off to the waiting nurses. Cord blood was obtained. The placenta was then manually removed from the uterus. Uterus was then exteriorized and cleared of all clots and debris. The hysterotomy incision was then reapproximated using 2 layers of 1-0 Vicryl in a running locking fashion. Following closure of the second layer, excellent hemostasis was noted. The uterus was then returned to the abdomen. Again, the hysterotomy incision was reinspected and found to have excellent hemostasis. The rectus muscles were then reapproximated using 1-0 Vicryl interrupted sutures. The fascia was then closed using 1-0 Vicryl in a running, non-locking fashion. The subcutaneous space was made hemostatic using Bovie cautery and the skin was then closed with absorbable kaya, covered with an OpSite and then with a pressure dressing. At this point in time, the procedure was terminated. All sponge, lap, and needle counts were correct x2. The patient tolerated the procedure well. The patient was taken to recovery room in stable condition. DICTATING PHYSICIAN: Toñito Cavanaugh DO [id number] PHY#: [id number] ID: [id number] JOB#: [id number] ACCT: [id number] cc:Toñito Cavanaugh D.O. >
== END 2016-10-21 16:25 | disposition home or self-care (01) | DRG 765 ==
LOC: LR 08:31 → 2S 10-19 19:39
PROVIDERS: ADMIT Obstetrics & Gynecology; ATTEND Obstetrics & Gynecology
PROC: 4A1HXCZ Monitoring of Products of Conception, Cardiac Rate, External Approach (ICD-10-PCS; 2016-10-17)
PROC: 3E033VJ Introduction of Other Hormone into Peripheral Vein, Percutaneous Approach (ICD-10-PCS; 2016-10-18)
PROC: 10D00Z1 Extraction of Products of Conception, Low, Open Approach (ICD-10-PCS; principal; 2016-10-19)
PROC: 10907ZC Drainage of Amniotic Fluid, Therapeutic from Products of Conception, Via Natural or Artificial Opening (ICD-10-PCS; 2016-10-19)
DX: O61.0 Failed medical induction of labor (principal); D62 Acute posthemorrhagic anemia; O76 Abnormality in fetal heart rate and rhythm complicating labor and delivery; O36.5930 Maternal care for other known or suspected poor fetal growth, third trimester, not applicable or unspecified; O13.4 Gestational [pregnancy-induced] hypertension without significant proteinuria, complicating childbirth; O99.02 Anemia complicating childbirth; O69.81X0 Labor and delivery complicated by cord around neck, without compression, not applicable or unspecified; O11.4 Pre-existing hypertension with pre-eclampsia, complicating childbirth; Z79.899 Other long term (current) drug therapy; Z88.6 Allergy status to analgesic agent; Z91.018 Allergy to other foods; Z3A.37 37 weeks gestation of pregnancy; Z37.0 Single live birth
CPT/HCPCS: 1961; 36415; 80307; 81005; 85025; 85027; 86592; 86850; 86900; 86901; 88307; 94799; J0131; J0690; J1100; J1170; J1885; J2210; J2250; J2405; J2590; J2765; J3010; J3490